=== PATIENT | male | born 1970 | race Caucasian/White ===

== ENCOUNTER 2025-03-07 16:05 | Emergency (ER) | payer OTHER ==
[2025-03-07] MEDS ORDERED: diphenhydrAMINE hydrochloride 50 MG/ML VIAL IM ONE (16:20)
[2025-03-07 16:58] LABS: BASO # 0.1 10*3/uL (0.0-0.1); BASO % 0.9 % (0.0-1.0); EOS # 0.3 10*3/uL (0.0-0.4); EOS % 3.8 % (1.0-4.0); MEAN CELL VOLUME 92.2 fl (80.0-94.0); MEAN CORPUSCULAR HGB 32.1 pg (27.0-31.0); MEAN PLATELET VOLUME 8.9 fl (9.6-12.3); MONO # 0.5 10*3/uL (0.1-1.0); MONO % 6.8 % (3.0-9.0); NEUT # 4.3 10*3/uL (2.3-7.9); NEUT % 58.0 % (47.0-73.0); NUCLEATED RED BLOOD CELL 0.0 % (0.0-0.0); NUCLEATED RED BLOOD CELL 0.0 10*3/uL (0.0-0.0); PLATELET COUNT AUTOMATED 220 10*3/uL (130-400); RED CELL DISTRI WIDTH 12.9 % (0-14.5)
[2025-03-07 17:38] LABS: CPK 198 U/L (34-171); SGPT/ALT 15 U/L (5-49)
[2025-03-07 17:39] LABS: BUN < 5 mg/dl (9-23)
[2025-03-07 17:41] LABS: ETHYL ALCOHOL 385.6 mg/dl (<3)
[2025-03-07] MEDS ORDERED: SODIUM CHLORIDE 0.9% 1,000 ML IV ONE (18:05)
[2025-03-07 23:16] LABS: BILIRUBIN Negative (Negative); BLOOD 1+ (Negative); CLARITY Clear (Clear); COLOR Yellow (Yellow); KETONE Negative (Negative); LEUKO ESTERASE Negative (Negative); NITRITE Negative (Negative); PH 8.0 (4.5-8.0); SPECIFIC GRAVITY 1.010 (1.001-1.030); UROBILINOGEN 1.0 E.U./dl (0.0-1.0)
[2025-03-07 23:23] LABS: URINE AMPHETAMINES Negative (1000ng/ml); URINE BARBITURATES Negative (200ng/ml); URINE BENZODIAZEPINES Positive (200ng/ml); URINE CANNABINOIDS (THC) Negative (50ng/ml); URINE COCAINE Negative (300ng/ml); URINE METHADONE Negative (300ng/ml); URINE OPIATES Negative (300ng/ml); URINE PHENCYCLIDINE Negative (25ng/ml)
[2025-03-07 23:28] LABS: RBC 16-20 rbc/hpf (0-2); WBC 0-2 wbc/hpf (0-5)
== END 2025-03-08 09:02 | disposition home or self-care (01) ==
LOC: ED 16:05
PROVIDERS: Internal Medicine
DX: F10.129 Alcohol abuse with intoxication, unspecified (principal); Y90.8 Blood alcohol level of 240 mg/100 ml or more